=== PATIENT | male | born 2000 | race Caucasian/White ===

== ENCOUNTER 2020-04-01 09:45 | Outpatient (RCR) | payer OTHER, SELFPAY ==
[2020-03-22 13:12] VITALS: BMI 24.3
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
--- NOTE | 2020-03-23 09:25 | PC.NURSE ---
I called and spoke with pt after the morning community meeting, in which he presented with no shirt on and in which he did not have the camera on his face so that we could see him consistently. I asked him to please put on a shirt. I also spoke to him about group participation, as he declined to participate or show his face much yesterday on his first day. I let him know that if he remains unengaged in the treatment, we might get the message that this is not working and end up discharging him. I asked if there is anything we can do to help with this, and he said no. he was a bit short with words, but not abrasive. He said okay, and that he will put on a shirt. I asked him to pls reach out to me or any staff if he needs help with participation, or if he's struggling.
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
--- NOTE | 2020-03-25 15:31 | PC.NURSE ---
Pt emailed staff letting us know he has court today and tomorrow (03/25 and Sunday03/26/20) and will not be present in PHP.
--- NOTE | 2020-03-31 08:44 | PC.NURSE ---
I attempted to call pt several times yesterday and once this morning. I left a message yesterday the first time I called, and he has not responded. This morning his VM was full. I am attempting to talk to him about aftercare and about use of groups (needing to show his face on the screen).
--- NOTE | 2020-03-31 13:54 | PC.NURSE ---
Johny had a Telehealth medication appointment with Carloz Hernandez APRN today at 1330. Patient did not show.
--- NOTE | 2020-03-31 14:49 | PC.NURSE ---
I tried to call pt this morning before groups (8:30 am). His voice mailbox was full so I was unable to leave a msg. I then called and spoke to him at 9:25. I let him know that his VM is full. I also let him know that staff will exit him from group if he is not present on the screen in group after we ask him to be. He said okay [id number]. I let him know that I want to give him numbers for med providers and talk to him about this. We planned to talk between 2 and 2:30 today for this because there wasnt enough time to talk about it before the start of the first group. He said he'd make sure to answer the phone at that time. I called him at 2:16. His MV was still full. I called again at 2:30, and he did not answer but I was able to leave a message. I asked him to call re: aftercare, and let him know that Maryann the nurse made him a primary care appt that I want to inform him about as well. He has not called back as of yet.
--- NOTE | 2020-03-31 16:30 | PM.EVENT ---
Event Note Date of Service: 03/31/20 Event Note: Pt did not attend scheduled psychopharmacology appointment today.
--- NOTE | 2020-04-01 08:18 | PC.NURSE ---
I called and LM again for pt in effort to discuss aftercare, etc.
--- NOTE | 2020-04-01 14:23 | PC.NURSE ---
I called and was able to speak to pt. I gave him the number of the 4 med providers I found listed in or near [place] that take his insurance and that say they are taking clients. They are: 1) Emmanuelle Meehan NP at [facility] , 2) Dr. Jase Mo , 3) Lili Power NP at [facility] , and 4) Keila Rangel NP . He said he will call them today, and touch base with me tomorrow after program. I told him that if he doesn't hear back from them or isnt able to get an appointment with any of them, we recommend a referral to [facility]. I let him know that if he were referred to [facility], it would mean him seeing a therapist at [facility], as they don't accept referrals for their med providers without attendance to their therapists. I also let him know about a new appointment with a primary care person that was made by Maryann the nurse here. The appt is on April 29, 2020, at 10am, with Jesus Bruce, [facility], [address] . He admitted he has not gotten bloodwork for starting Depakote yet, and I let him know that it's ordered and he can get this bloodwork here at [facility].
== END 2020-04-01 23:55 | disposition left against medical advice (07) ==
LOC: HO.PHPA 09:45
PROVIDERS: Visit Provider Psychiatry & Neurology Psychiatry
DX: F43.10 Post-traumatic stress disorder, unspecified (principal); F63.81 Intermittent explosive disorder
CPT/HCPCS: 90791; 90853